=== PATIENT | female | born 1990 | race Caucasian/White ===

== ENCOUNTER 2016-05-19 18:37 | Outpatient (CLI) | payer OTHER ==
[2016-05-19 19:31] LABS: ABSOLUTE EOSINOPHILS # (AUTO) 0.1 10^3/uL (0.0-0.6); ABSOLUTE LYMPHOCYTES (AUTO) 0.9 10^3/uL (0.5-4.7); ABSOLUTE MONOCYTES (AUTO) 0.5 10^3/uL (0.1-1.4); ABSOLUTE NEUT (AUTO) 5.5 10^3/uL (1.7-8.2); BASOPHILS % (AUTO) 0.1 % (0-2); EOSINOPHILS % (AUTO) 1.1 % (0-6); HEMATOCRIT 32.7 % (36.0-47.0); HEMOGLOBIN 11.1 g/dL (12.0-15.5); HGB HCT DIFFERENCE 0.6; LYMPHOCYTES % (AUTO) 12.5 % (13-45); MEAN CORPUSCULAR HEMOGLOBIN 30.5 pg (27.0-33.4); MEAN CORPUSCULAR HGB CONC 34.1 g/dL (32.0-36.0); MEAN CORPUSCULAR VOLUME 89 fl (80-97); RED BLOOD COUNT 3.65 10^6/uL (3.72-5.28); RED CELL DISTRIBUTION WIDTH 13.4 % (11.5-14.0); SEGMENTED NEUTROPHILS % (AUTO) 79.3 % (42-78); WHITE BLOOD COUNT 6.9 10^3/uL (4.0-10.5)
[2016-05-19 19:51] LABS: AMORPHOUS SEDIMENT,URINE TRACE /HPF; APPEARANCE,URINE SLIGHTLY-CLOUDY; BILIRUBIN,URINE NEGATIVE (NEGATIVE); GLUCOSE, URINE NEGATIVE (NEGATIVE); KETONES,URINE NEGATIVE (NEGATIVE); LEUKOCYTE ESTERASE,URINE NEGATIVE (NEGATIVE); NITRITE,URINE NEGATIVE (NEGATIVE); PROTEIN,URINE NEGATIVE (NEGATIVE); URINE SPECIFIC GRAVITY 1.012; UROBILINOGEN,URINE NEGATIVE mg/dL (<2.0)
--- NOTE | 2016-05-19 20:00 | L&D Flow Sheet ---
LD Flowsheet Datetime Report Generated by CPN: 05/19/2016 20:00 Datetime: 05/19/2016 19:47 Vital Signs NBP Sys/Gifty/Mean (mmHg): 98 (QS system process) : 53 (QS system process) : 71 (QS system process) Pulse: 105 (QS system process) Datetime: 05/19/2016 19:45 Uterine Activity Monitor Mode: External (Tiffanie Marlatt, RN) Frequency (min): 0 (Tiffanie Marlatt, RN) Resting Tone (Palpate): Relaxed (Tiffanie Marlatt, RN) Assessment A Monitor Mode: External US (Tiffanie Marlatt, RN) FHR Baseline Rate : 140 (Tiffanie Marlatt, RN) Variability: Moderate 6-25 bpm (Tiffanie Marlatt, RN) Comments: appropriate for gestational age (Tiffanie Marlatt, RN) Datetime: 05/19/2016 19:31 Vital Signs NBP Sys/Gifty/Mean (mmHg): 93 (QS system process) : 50 (QS system process) : 66 (QS system process) Pulse: 107 (QS system process) Datetime: 05/19/2016 19:25 Communication Comments: Report received from S. Camp RN (Tiffanie Marlatt, RN) Datetime: 05/19/2016 19:24 Communication Communication: RN at Bedside; Report Given to @ K marlatt RN (Felicitas Camp, RNC) Communication Comments: care relinquished (Felicitas Camp, RNC) Datetime: 05/19/2016 19:16 Vital Signs NBP Sys/Gifty/Mean (mmHg): 99 (QS system process) : 57 (QS system process) : 72 (QS system process) Pulse: 103 (QS system process) Datetime: 05/19/2016 19:15 Assessment A Monitor Mode: External US; Auscultation (Felicitas Camp, RNC) FHR Baseline Rate : 140 (Felicitas Camp, RNC) FHR Baseline Changes: No Baseline Change (Felicitas Camp, RNC) Variability: Moderate 6-25 bpm (Felicitas Camp, RNC) Accelerations: 10X10 (Felicitas Camp, RNC) Decelerations: None (Felicitas Camp, RNC) Datetime: 05/19/2016 19:10 Patient Care IV/Blood Work: Labs Drawn (Felicitas Camp, RNC) Patient Care Comments: preeclampsia labs drawn (Felicitas Camp, RNC) Datetime: 05/19/2016 19:03 Frequency (min): denies (Felicitas Camp, RNC) Vaginal Exam Vaginal Bleeding: None (Felicitas Camp, RNC) Maternal Assessment Level of Consciousness: Fully Conscious (Felicitas Camp, RNC) DTR's/Clonus: DTRs 2+; No Clonus (Felicitas Camp, RNC) Headache: Denies (Felicitas Camp, RNC) Breath Sounds, Left: Clear and Equal (Felicitas Camp, RNC) Breath Sounds, Right: Clear and Equal (Felicitas Camp, RNC) Nausea/Vomiting: Denies (Felicitas Camp, RNC) RUQ Epigastric Pain: Denies (Felicitas Camp, RNC) Datetime: 05/19/2016:01 Vital Signs NBP Sys/Gifty/Mean (mmHg): 112 (QS system process) : 58 (QS system process) : 78 (QS system process) Pulse: 118 (QS system process) Datetime: 05/19/2016 19:00 Teaching Instructional Method: Demo; Verbal (Felicitas Camp, RNC) Plan of Care: Plan of Care Discussed; Gestational Hypertension/Preeclampsia/Eclampsia (Felicitas Camp, RNC) Unit Routine: [place] to Room; Call Scanlon; Bed (Felicitas Camp, RNC) Related: Hydration (Felicitas Camp, RNC) Datetime: 05/19/2016 18:59 Patient Position/Activity: Right Lateral (Felicitas Jamison [facility])
[2016-05-19 20:02] LABS: ALANINE AMINOTRANSFERASE 30 U/L (9-52); ALBUMIN 3.1 g/dL (3.5-5.0); ALKALINE PHOSPHATASE 128 U/L (38-126); ANION GAP 10 (5-19); ASPARTATE AMINO TRANSFERASE 23 U/L (14-36); BILIRUBIN,TOTAL 0.3 mg/dL (0.2-1.3); BLOOD UREA NITROGEN 7 mg/dL (7-20); CALCIUM 9.2 mg/dL (8.4-10.2); CARBON DIOXIDE 24 mmol/L (22-30); CHLORIDE 105 mmol/L (98-107); CREATININE RESULT 0.66 mg/dL (0.52-1.25); GLUCOSE 97 mg/dL (75-110); LDH 340 U/L (313-618); POTASSIUM 3.6 mmol/L (3.6-5.0); SODIUM 138.5 mmol/L (137-145); TOTAL PROTEIN 5.6 g/dL (6.3-8.2); URIC ACID 4.2 mg/dL (2.5-6.2)
[2016-05-19 20:09] LABS: URINE BARBITURATES SCREEN NEGATIVE; URINE METHADONE SCREEN NEGATIVE; URINE OPIATES LOW NEGATIVE; URINE PHENCYCLIDINE SCREEN NEGATIVE
== END 2016-05-19 20:15 | disposition home or self-care (01) ==
LOC: LC 18:37
PROVIDERS: ATTEND Specialist
PROC: 4A1HXCZ Monitoring of Products of Conception, Cardiac Rate, External Approach (ICD-10-PCS; principal; 2016-05-19)
DX: O47.03 False labor before 37 completed weeks of gestation, third trimester (principal); O16.3 Unspecified maternal hypertension, third trimester; Z3A.31 31 weeks gestation of pregnancy
CPT/HCPCS: 36415; 80053; 80307; 81001; 83615; 84550; 85025

== ENCOUNTER 2016-06-25 19:28 | Outpatient (CLI) | payer OTHER ==
--- NOTE | 2016-06-25 20:01 | L&D Flow Sheet ---
LD Flowsheet Datetime Report Generated by CPN: 06/25/2016 20:00 Datetime: 06/25/2016 19:52 Vital Signs NBP Sys/Gifty/Mean (mmHg): 123 (QS system process) : 78 (QS system process) : 94 (QS system process) Pulse: 126 (QS system process) Communication LaborFlag: Antepartum (QS system process) Datetime: 06/25/2016 19:50 Uterine Activity Frequency (min): q 5 min (Katalina Vitrano, RN) Pain Pain Scale: 3 (Katalina Vitrano, RN) Pain Presence: Intermittent (Katalina Vitrano, RN) Pain Type: Contraction (Katalina Vitrano, RN) Pain Location: Abdomen; Back (Katalina Vitrano, RN) Pain Relief Measures: Comfort Measures (Katalina Vitrano, RN) Pain Coping: Talking Through Contractions (Katalina Vitrano, RN) Membrane Status: Intact (Katalina Vitrano, RN) Vaginal Bleeding: None (Katalina Vitrano, RN) Maternal Assessment Level of Consciousness: Fully Conscious (Katalina Vitrano, RN) DTR's/Clonus: DTRs 2+; No Clonus (Katalina Vitrano, RN) Headache: Denies (Katalina Vitrano, RN) Breath Sounds, Left: Clear and Equal (Katalina Vitrano, RN) Breath Sounds, Right: Clear and Equal (Katalina Vitrano, RN) Nausea/Vomiting: Denies (Katalina Vitrano, RN) RUQ Epigastric Pain: Denies (Katalina Vitrano, RN) Communication LaborFlag: Antepartum (QS system process) Datetime: 06/25/2016 19:49 Vaginal Exam Dilatation (cm): 1.0 (Katalina Santana, RN) Effacement (%): 50 (Katalina Santana, RN) Station: -3 (Katalina Santana, RN) Exam by: Ledy Dillon RN (Katalina Vitrbruna, RN) Vaginal Bleeding: None (Katalina Santana, RN) Cervix, Consistency: Firm (Katalina Santana, RN) Cervix, Position: Midposition (Katalina Santana, RN) Datetime: 06/25/2016 19:45 Patient Care Patient Position/Activity: Right Tilt; Semi-Fowlers (Katalina Dillon RN) I/O Interventions: Clear Liquids Given (Katalina Dillon RN) Teaching Instructional Method: Verbal; Patient Instructed; Family/Support Person Instructed; Verbalized Understanding (Katalina Dillon RN) Plan of Care: Plan of Care Discussed (Katalina Dillon RN) Unit Routine: [place] to Room; Call Scanlon; Bed; Unit Personnel; Monitoring; Safety/Fall Risk Prevention; Bathroom Privileges (Katalina Dillon RN)
--- NOTE | 2016-06-25 20:01 | L&D Flow Sheet ---
LD Flowsheet Datetime Report Generated by CPN: 06/25/2016 20:00 Datetime: 06/25/2016 19:52 Vital Signs NBP Sys/Gifty/Mean (mmHg): 123 (QS system process) : 78 (QS system process) : 94 (QS system process) Pulse: 126 (QS system process) Communication LaborFlag: Antepartum (QS system process) Datetime: 06/25/2016 19:50 Uterine Activity Frequency (min): q 5 min (Katalina Vitrano, RN) Pain Pain Scale: 3 (Katalina Vitrano, RN) Pain Presence: Intermittent (Katalina Vitrano, RN) Pain Type: Contraction (Katalina Vitrano, RN) Pain Location: Abdomen; Back (Katalina Vitrano, RN) Pain Relief Measures: Comfort Measures (Katalina Vitrano, RN) Pain Coping: Talking Through Contractions (Katalina Vitrano, RN) Membrane Status: Intact (Katalina Vitrano, RN) Vaginal Bleeding: None (Katalina Vitrano, RN) Maternal Assessment Level of Consciousness: Fully Conscious (Katalina Vitrano, RN) DTR's/Clonus: DTRs 2+; No Clonus (Katalina Vitrano, RN) Headache: Denies (Katalina Vitrano, RN) Breath Sounds, Left: Clear and Equal (Katalina Vitrano, RN) Breath Sounds, Right: Clear and Equal (Katalina Vitrano, RN) Nausea/Vomiting: Denies (Katalina Vitrano, RN) RUQ Epigastric Pain: Denies (Katalina Vitrano, RN) Communication LaborFlag: Antepartum (QS system process) Datetime: 06/25/2016 19:49 Vaginal Exam Dilatation (cm): 1.0 (Katalina Santana, RN) Effacement (%): 50 (Katalina Santana, RN) Station: -3 (Katalina Santana, RN) Exam by: Ledy Dillon RN (Katalina Vitrbruna, RN) Vaginal Bleeding: None (Katalina Santana, RN) Cervix, Consistency: Firm (Katalina Santana, RN) Cervix, Position: Midposition (Katalina Santana, RN) Datetime: 06/25/2016 19:45 Patient Care Patient Position/Activity: Right Tilt; Semi-Fowlers (Katalina Vitrano, RN) I/O Interventions: Clear Liquids Given (Katalina Vitrano, RN) Teaching Instructional Method: Verbal; Patient Instructed; Family/Support Person Instructed; Verbalized Understanding (Katalina RUSSELL Dillon) Plan of Care: Plan of Care Discussed (Katalina RUSSELL Dillon) Unit Routine: [place] to Room; Call Scanlon; Bed; Unit Personnel; Monitoring; Safety/Fall Risk Prevention; Bathroom Privileges (Katalina RUSSELL Dillon) Datetime: 05/19/2016 20:01 Communication LaborFlag: Antepartum (QS system process) Datetime: 05/19/2016 19:47 Communication LaborFlag: Antepartum (QS system process) Datetime: 05/19/2016 19:31 Communication LaborFlag: Antepartum (QS system process) Datetime: 05/19/2016 19:16 Communication LaborFlag: Antepartum (QS system process) Datetime: 05/19/2016 19:01 Communication LaborFlag: Antepartum (QS system process)
[2016-06-25 20:06] LABS: APPEARANCE,URINE TURBID; BILIRUBIN,URINE NEGATIVE (NEGATIVE); GLUCOSE, URINE NEGATIVE (NEGATIVE); KETONES,URINE NEGATIVE (NEGATIVE); LEUKOCYTE ESTERASE,URINE NEGATIVE (NEGATIVE); NITRITE,URINE NEGATIVE (NEGATIVE); PROTEIN,URINE 30 mg/dL (NEGATIVE); URINE SPECIFIC GRAVITY 1.017; UROBILINOGEN,URINE NEGATIVE mg/dL (<2.0)
[2016-06-25 20:21] LABS: URINE BARBITURATES SCREEN NEGATIVE; URINE METHADONE SCREEN NEGATIVE; URINE OPIATES LOW NEGATIVE; URINE PHENCYCLIDINE SCREEN NEGATIVE
[2016-06-25 21:46] LABS: APPEARANCE,URINE CLEAR; BILIRUBIN,URINE NEGATIVE (NEGATIVE); GLUCOSE, URINE NEGATIVE (NEGATIVE); KETONES,URINE TRACE mg/dL (NEGATIVE); LEUKOCYTE ESTERASE,URINE NEGATIVE (NEGATIVE); NITRITE,URINE NEGATIVE (NEGATIVE); PROTEIN,URINE NEGATIVE (NEGATIVE); URINE SPECIFIC GRAVITY 1.009; UROBILINOGEN,URINE NEGATIVE mg/dL (<2.0)
== END 2016-06-25 22:14 | disposition home or self-care (01) ==
LOC: LC 19:28
PROVIDERS: ATTEND Obstetrics & Gynecology
PROC: 4A1HXCZ Monitoring of Products of Conception, Cardiac Rate, External Approach (ICD-10-PCS; principal; 2016-06-25)
DX: O47.03 False labor before 37 completed weeks of gestation, third trimester (principal); Z3A.36 36 weeks gestation of pregnancy
CPT/HCPCS: 80307; 81001; 81005

== ENCOUNTER → 2016-07-08 | Outpatient (CLI) | payer OTHER ==
--- NOTE | 2016-07-08 12:47 | Non Stress Test Report ---
Non Stress Test Datetime Report Generated by CPN: 07/08/2016 12:47 DEMOGRAPHIC Test Number: 2 EGA NST: 36.4 EGA NST: 31.2 INDICATION Indication for Study: Ordered by Provider Indication for Study: Other MONITORING Monitor Explained: Monitor Explained; Test Explained; Patient Verbalized Understanding Time on Monitor: 06/25/2016 19:46 Time on Monitor: 05/19/2016 18:57 Time off Monitor: 06/25/2016 22:05 NST Duration: 139 NST INTERVENTIONS NST Interventions: PO Hydration NST Interventions: PO Hydration; Reposition Patient Physician Notified NST: Dr. Corrales BABY A: [id number] BABY A Movement : Present Contraction Frequency : Irregular FHR Baseline : 135 Accelerations : 15X15 Decelerations : None Variability : Moderate 6-25bpm NST Review: Meets Criteria for Reactive NST NST Review and Verified By : Laurel Montague RN NST Results: Reactive NST REPORT Report Trigger: Send Report
== END ==
LOC: LC 12:37
PROVIDERS: ATTEND Obstetrics & Gynecology
PROC: 4A1HXCZ Monitoring of Products of Conception, Cardiac Rate, External Approach (ICD-10-PCS; principal; 2016-07-08)
DX: O47.03 False labor before 37 completed weeks of gestation, third trimester (principal); Z3A.36 36 weeks gestation of pregnancy
CPT/HCPCS: 59025

== ENCOUNTER 2016-07-10 16:49 | Outpatient (CLI) | payer OTHER ==
[2016-07-10 17:26] LABS: APPEARANCE,URINE SLIGHTLY-CLOUDY; BILIRUBIN,URINE NEGATIVE (NEGATIVE); GLUCOSE, URINE NEGATIVE (NEGATIVE); KETONES,URINE NEGATIVE (NEGATIVE); LEUKOCYTE ESTERASE,URINE MODERATE (NEGATIVE); NITRITE,URINE NEGATIVE (NEGATIVE); PROTEIN,URINE NEGATIVE (NEGATIVE); URINE SPECIFIC GRAVITY 1.008; UROBILINOGEN,URINE NEGATIVE mg/dL (<2.0)
[2016-07-10] MEDS ORDERED: NALBUPHINE HCL INJ 10 MG/1 ML AMPULE ONE (17:33)
[2016-07-10 17:54] LABS: URINE BARBITURATES SCREEN NEGATIVE; URINE METHADONE SCREEN NEGATIVE; URINE OPIATES LOW NEGATIVE; URINE PHENCYCLIDINE SCREEN NEGATIVE
--- NOTE | 2016-07-10 20:00 | L&D Flow Sheet ---
LD Flowsheet Datetime Report Generated by CPN: 07/10/2016 20:00 Datetime: 07/10/2016 19:20 Communication Comments: report given to Kathy Mena RN. Care relinquished (Oly Montenegro RN) Datetime: 07/10/2016 19:10 Communication Comments: Care assummed from RN Lan. Report received. Patient currently ambulating but aware of change of shift and new RN. Patient to arrive back in room at 2000 for evaluation (Viola Kossmann, RN) Datetime: 07/10/2016 18:58 Communication Comments: monitors removed for patient ambulation (Oly Montenegro, RN) Datetime: 07/10/2016 18:54 Communication Comments: Dr. Gleason notified of SVE, contractions, heart rate, order received for patient to ambulate for one hour (Oly Montenegro, RN) Datetime: 07/10/2016 18:52 NBP Sys/Gifty/Mean (mmHg): 134 (QS system process) : 91 (QS system process) : 106 (QS system process) Pulse: 117 (QS system process) LaborFlag: Antepartum (QS system process) Datetime: 07/10/2016 18:45 Patient Position/Activity: Peanut Ball; Right Extreme (Oly Montenegro RN) Datetime: 07/10/2016 18:30 Monitor Mode: External; Palpation (Oly Montenegro RN) Frequency (min): 2 (Oly Montenegro RN) Quality: Mild/Moderate (Oly Montenegro RN) Duration (sec): 60-80 (Oly Montenegro RN) Duration Criteria: Less than Two 120 Second Contractions (Oly Montenegro RN) Pattern: Normal: <= 5 Contractions in 10 Minutes (Oly Montenegro RN) Resting Tone (Palpate): Relaxed (Oly Montenegro RN) Monitor Mode: External US (Oly Montenegro RN) FHR Baseline Rate : 140 (Oly Montenegro RN) FHR Baseline Changes: No Baseline Change (Oly Montenegro RN) Variability: Moderate 6-25 bpm (Oly Montenegro RN) Accelerations: None (Oly Montenegro RN) Decelerations: None (Oly Montenegro RN) Dilatation (cm): 3.0 (Oly Montenegro RN) Effacement (%): 70 (Oly Montenegro RN) Station: -2 (Oly Montenegro RN) Exam by: Alisha Montenegro RN (Oly Montenegro RN) Datetime: 07/10/2016 18:23 NBP Sys/Gifty/Mean (mmHg): 134 (QS system process) : 76 (QS system process) : 100 (QS system process) Pulse: 117 (QS system process) LaborFlag: Antepartum (QS system process) Datetime: 07/10/2016 18:20 Communication Comments: patient states the edge is taken off of the pain but still rates pain 4/5 (Oly Montenegro RN) Datetime: 07/10/2016 18:07 NBP Sys/Gifty/Mean (mmHg): 125 (QS system process) : 58 (QS system process) : 84 (QS system process) Pulse: 114 (QS system process) LaborFlag: Antepartum (QS system process) Datetime: 07/10/2016 18:00 Monitor Mode: External; Palpation (Oly Montenegro RN) Frequency (min): 2 (Oly Montenegro, RUSSELL) Quality: Mild/Moderate (Oly Montenegro RN) Duration (sec): 50-60 (Oly Montenegro RN) Duration Criteria: Less than Two 120 Second Contractions (Oly Montenegro, RUSSELL) Pattern: Normal: <= 5 Contractions in 10 Minutes (Oly Montenegro RN) Resting Tone (Palpate): Relaxed (Oly Montenegro, RUSSELL) Contraction Comments: irritability (Oly Montenegro, RUSSELL) Monitor Mode: External US (Oly Montenegro, RUSSELL) FHR Baseline Rate : 145 (Oly Montenegro RN) FHR Baseline Changes: No Baseline Change (Oly Montenegro, RUSSELL) Variability: Moderate 6-25 bpm (Oly Montenegro, RUSSELL) Accelerations: None (Oly Montenegro, RUSSELL) Decelerations: None (Oly Montenegro, RUSSELL) Datetime: 07/10/2016 17:52 NBP Sys/Gifty/Mean (mmHg): 134 (QS system process) : 81 (QS system process) : 100 (QS system process) Pulse: 109 (QS system process) LaborFlag: Antepartum (QS system process) Datetime: 07/10/2016 17:40 Analgesics/Sedatives: Nubain (mg) @ 10 ([facility], RN) Datetime: 07/10/2016 17:38 NBP Sys/Gifty/Mean (mmHg): 134 (QS system process) : 88 (QS system process) : 104 (QS system process) Pulse: 116 (QS system process) LaborFlag: Antepartum (QS system process) Datetime: 07/10/2016 17:30 Monitor Mode: External; Palpation (Oly Montenegro, RUSSELL) Frequency (min): 1.5-2 (Oly Montenegro, RUSSELL) Quality: Mild/Moderate (Oly Montenegro, RN) Duration (sec): 60-90 (Oly Montenegro, RN) Duration Criteria: Less than Two 120 Second Contractions (Oly Montenegro, RN) Pattern: Normal: <= 5 Contractions in 10 Minutes (Oly Montenegro, RN) Resting Tone (Palpate): Relaxed (Oly Montenegro, RN) Monitor Mode: External US (Oly Montenegro, RN) FHR Baseline Rate : 140 (Oly Montenegro, RN) FHR Baseline Changes: No Baseline Change (Oly Montenegro, RN) Variability: Moderate 6-25 bpm (Oly Montenegro, RN) Accelerations: 15X15 (Oly Montenegro, RN) Decelerations: None (Oly Montenegro, RN) Datetime: 07/10/2016 17:22 Communication Comments: Dr. Gleason notified of patient's pain 4/5 with contractions in back. Orde received from Dr. Gleason to start IV and administer Nubain 10 mg IV x1 now (Oly Montenegro RN) Datetime: 07/10/2016 17:15 Dilatation (cm): 2.5 (Oly Montenegro RN) Effacement (%): 70 (Oly Montenegro RN) Station: -2 (Oly Montenegro RN) Exam by: Alisha Montenegro RN (Oly Montenegro RN) Vaginal Bleeding: None (Oly Montenegro RN) Cervix, Consistency: Moderate (Oly Montenegro RN) Cervix, Position: Posterior (Oly Montenegro RN) Datetime: 07/10/2016 17:09 NBP Sys/Gifty/Mean (mmHg): 145 (QS system process) : 69 (QS system process) : 99 (QS system process) Pulse: 116 (QS system process) LaborFlag: Antepartum (QS system process) Datetime: 07/10/2016 17:07 NBP Sys/Gifty/Mean (mmHg): 131 (QS system process) : 100 (QS system process) : 112 (QS system process) Pulse: 116 (QS system process) Communication Comments: patient movement, inaccurate reading (Oly Montenegro RN) LaborFlag: Antepartum (QS system process) Datetime: 07/10/2016 17:04 Frequency (min): 3-5 (Oly Montenegro RN) Quality: Moderate (Oly Montenegro RN) Pattern: Normal: <= 5 Contractions in 10 Minutes (Oly Montenegro RN) Resting Tone (Palpate): Relaxed (Oly Montenegro RN) Monitor Mode: External US (Oly Montenegro RN) Pain Scale: 4 (Oly Montenegro RN) Pain Presence: Intermittent (Oly Montenegro RN) Pain Type: Contraction (Oly Montenegro RN) Pain Location: Abdomen (Oly Montenegro RN) Pain Goal: 1 (Oly Montenegro RN) Pain Relief Measures: Comfort Measures (Oly Montenegro RN) Pain Coping: Breathing Through Contractions (Oly Montenegro RN) Membrane Status: Intact (Annotations: intact per patient) (Oly Montenegro RN) Vaginal Bleeding: None (Oly Montenegro RN) Dilatation (cm): 1-2 cm (Oly Montenegro RN) Effacement: 40-50_ effaced (Oly Montenegro RN) Station: minus 2 (Oly Montenegro RN) Consistency: Medium (Oly Montenegro RN) Position: Posterior (Oly Montenegro RN) Total Jenkins's Score: 4 (QS system process) : 0-4 = Unfavorable cervix (QS system process) Level of Consciousness: Fully Conscious (Oly Montenegro RN) DTR's/Clonus: DTRs 2+; No Clonus (Oly Montenegro RN) Headache: Denies (Oly Montenegro RN) Breath Sounds, Left: Clear and Equal (Oly Montenegro RN) Breath Sounds, Right: Clear and Equal (Oly Montenegro RN) Nausea/Vomiting: Denies (Oly Montenegro RN) RUQ Epigastric Pain: Denies (Oly Montenegro RN) Oxygen Method: Room Air (Oly Montenegro RN) Patient Position/Activity: Right Tilt (Oly Montenegro RN) Comfort Measures: Coaching (Oly Montenegro RN) Instructional Method: Verbal (Oly Montenegro RN) Plan of Care: Plan of Care Discussed (Oly Montenegro RN) Unit Routine: [place] to Room (Oly Montenegro RN) Labor/Induction: Labor Stages (Oly Montenegro RN) Related: Common Discomforts of (Oly Montenegro RN) LaborFlag: Antepartum (QS system process)
[2016-07-10] MEDS ORDERED: HYDROXYZINE PAMOATE 50 MG CAPSULE PO ONE (20:30)
[2016-07-10] MEDS ORDERED: HYDROXYZINE PAMOATE 50 MG CAPSULE ONE (20:47)
--- NOTE | 2016-07-10 21:31 | Non Stress Test Report ---
Non Stress Test Datetime Report Generated by CPN: 07/10/2016 21:31 DEMOGRAPHIC EGA NST: 38.5 INDICATION Indication for Study: Ordered by Provider Indication for Study (NST) Other: LC VITAL SIGNS Temperature - NST: 98.0 Pulse - NST: 120 RESP - NST: 20 NBPSYS NST: 126 NBPDIA NST: 83 URINE RESULTS Urine Protein, NST: Negative Urine Ketones - NST: Negative Urine Glucose - NST: Negative Urine Blood - NST: Positive MONITORING Monitor Explained: Monitor Explained; Test Explained; Patient Verbalized Understanding Time on Monitor: 07/10/2016 16:58 Time off Monitor: 07/10/2016 20:37 NST Duration: 219 NST INTERVENTIONS NST Interventions: PO Hydration; IV Fluids BABY A: [id number] BABY A Movement : Present Contraction Frequency : 2-4 with uterine irritability FHR Baseline : 135 Accelerations : 15X15 Decelerations : Variable Variability : Moderate 6-25bpm NST Review: Meets Criteria for Reactive NST NST Review and Verified By : Chalman, A. RN NST Results: Reactive NST COMMENTS NST Comments: patient received nubain so tracing reflects medication administration NST REPORT Report Trigger: Send Report
== END 2016-07-10 21:10 | disposition home or self-care (01) ==
LOC: LC 16:49
PROVIDERS: ATTEND Obstetrics & Gynecology
PROC: 4A1HXCZ Monitoring of Products of Conception, Cardiac Rate, External Approach (ICD-10-PCS; principal; 2016-07-10)
DX: O47.1 False labor at or after 37 completed weeks of gestation (principal); Z3A.38 38 weeks gestation of pregnancy
CPT/HCPCS: 59025; 81005; 80307; J2300

== ENCOUNTER 2016-07-15 14:33 | Inpatient (IN) | payer OTHER ==
[2016-07-15 15:10] LABS: AMNISURE (ROM) POSITIVE (NEGATIVE)
[2016-07-15 15:13] LABS: APPEARANCE,URINE SLIGHTLY-CLOUDY; BILIRUBIN,URINE NEGATIVE (NEGATIVE); GLUCOSE, URINE NEGATIVE (NEGATIVE); KETONES,URINE NEGATIVE (NEGATIVE); LEUKOCYTE ESTERASE,URINE MODERATE (NEGATIVE); NITRITE,URINE NEGATIVE (NEGATIVE); PROTEIN,URINE NEGATIVE (NEGATIVE); URINE SPECIFIC GRAVITY 1.014; UROBILINOGEN,URINE NEGATIVE mg/dL (<2.0)
[2016-07-15 15:30] LABS: URINE BARBITURATES SCREEN NEGATIVE; URINE METHADONE SCREEN NEGATIVE; URINE OPIATES LOW NEGATIVE; URINE PHENCYCLIDINE SCREEN NEGATIVE
[2016-07-15] MEDS ORDERED: RINGERS SOLUTION,LACTATED 1,000 ML IV PRN (15:32)
[2016-07-15] MEDS ORDERED: RINGERS SOLUTION,LACTATED 1,000 ML IV ONE (15:32)
[2016-07-15] MEDS ORDERED: OXYTOCIN/NORMAL SALINE 1,000 ML IV PRN ×2 (15:34→20:03)
[2016-07-15] MEDS ORDERED: BENZOIN/ALOE VERA/STORAX/TOLU TINCTURE 60 ML TP PRN (15:35)
[2016-07-15] MEDS ORDERED: BUPIVACAINE HCL 0.25 % INJ/PF (2.5 MG/1 ML) 30 ML VIAL INFIL ONE (15:35)
[2016-07-15] MEDS ORDERED: MISOPROSTOL 0.2 MG TABLET ONE (15:38)
[2016-07-15] MEDS ORDERED: OXYTOCIN/NORMAL SALINE 20 UNIT/1,000 ML RTUINJ ONE (15:39)
[2016-07-15] MEDS ORDERED: LIDOCAINE 1% INJ-PF (10 MG/ML) 30 ML SDV ONE (15:39)
[2016-07-15 15:58] LABS: ABSOLUTE LYMPHOCYTES (AUTO) 0.7 10^3/uL (0.5-4.7); ABSOLUTE MONOCYTES (AUTO) 0.4 10^3/uL (0.1-1.4); ABSOLUTE NEUT (AUTO) 7.9 10^3/uL (1.7-8.2); BASOPHILS % (AUTO) 0.2 % (0-2); EOSINOPHILS % (AUTO) 0.5 % (0-6); HEMATOCRIT 34.8 % (36.0-47.0); HEMOGLOBIN 11.8 g/dL (12.0-15.5); HGB HCT DIFFERENCE 0.6; LYMPHOCYTES % (AUTO) 7.4 % (13-45); MEAN CORPUSCULAR HEMOGLOBIN 29.3 pg (27.0-33.4); MEAN CORPUSCULAR HGB CONC 33.9 g/dL (32.0-36.0); MEAN CORPUSCULAR VOLUME 87 fl (80-97); MONOCYTES % (AUTO) 4.4 % (3-13); RED BLOOD COUNT 4.03 10^6/uL (3.72-5.28); RED CELL DISTRIBUTION WIDTH 15.2 % (11.5-14.0); SEGMENTED NEUTROPHILS % (AUTO) 87.5 % (42-78)
[2016-07-15] MEDS ORDERED: PHENYLEPHRINE HCL INJ/PF 10 MG/1 ML SDV ONE (16:17)
[2016-07-15] MEDS ORDERED: EPHEDRINE SULFATE INJ 50 MG/1 ML AMPULE ONE (16:17)
[2016-07-15] MEDS ORDERED: BUPIVACAINE HCL/NS/PF 125 MG/100 ML RTUINJ EPI ONE (16:17)
[2016-07-15] MEDS ORDERED: BUPIVACAINE HCL 0.25 % INJ/PF (2.5 MG/1 ML) 30 ML VIAL ONE (16:17)
[2016-07-15 16:22] LABS: ALANINE AMINOTRANSFERASE 43 U/L (9-52); ALBUMIN 2.9 g/dL (3.5-5.0); ALKALINE PHOSPHATASE 303 U/L (38-126); ANION GAP 10 (5-19); ASPARTATE AMINO TRANSFERASE 34 U/L (14-36); BILIRUBIN,DIRECT 0.3 mg/dL (0.0-0.4); BILIRUBIN,TOTAL 0.6 mg/dL (0.2-1.3); BLOOD UREA NITROGEN 10 mg/dL (7-20); CALCIUM 9.1 mg/dL (8.4-10.2); CARBON DIOXIDE 22 mmol/L (22-30); CHLORIDE 106 mmol/L (98-107); CREATININE RESULT 0.85 mg/dL (0.52-1.25); GLUCOSE 87 mg/dL (75-110); LDH 374 U/L (313-618); POTASSIUM 3.9 mmol/L (3.6-5.0); SODIUM 138.3 mmol/L (137-145); TOTAL PROTEIN 5.5 g/dL (6.3-8.2)
[2016-07-15] MEDS ORDERED: FAMOTIDINE INJ/PF 20 MG/2 ML SDV IV ONE ×2 (16:22)
[2016-07-15] MEDS ORDERED: ACETAMINOPHEN WITH CODEINE #3 TABLET PO PRN ×2 (20:03)
[2016-07-15] MEDS ORDERED: DIPH/PERTUSS(ACELL)/TETANUS VAC/PF 0.5 ML SYR (>=10YO) IM PRN (20:03)
[2016-07-15] MEDS ORDERED: MEASLES,MUMPS&RUBELLA VACC/PF 0.5 ML VIAL SUBCUT PRN (20:03)
[2016-07-15] MEDS ORDERED: BENZOCAINE/MENTHOL AEROSOL SPRAY 56 ML TOP PRN (20:03)
[2016-07-15] MEDS ORDERED: DIBUCAINE 1% OINTMENT 28 GM TP PRN (20:03)
[2016-07-15] MEDS ORDERED: ZOLPIDEM TARTRATE 5 MG TABLET PO PRN (20:03)
[2016-07-15] MEDS ORDERED: ACETAMINOPHEN WITH CODEINE #3 TABLET ONE (21:24)
[2016-07-15] MEDS ORDERED: IBUPROFEN 800 MG TABLET ONE (21:24)
[2016-07-15] MEDS: IBUPROFEN 800 MG TABLET PO SCH (21:31)
--- NOTE | 2016-07-15 21:50 | Admission Physical ---
Datetime Report Generated by CPN: 07/15/2016 21:50 CURRENT ADMISSION Chief Complaint: Suspected Ruptured Membranes Indication for Induction: PROM Admit Plan: Initiate Labor Protocol; Initiate Labor Augmentation Protocol Admit Plan- Other: hx Hodgkins lymphoma and radiation 02/2015 ALLERGIES Medication Allergies: Yes Medication Allergies: morphine/DE/Hives (07/15/2016); fentanyl/Hives (07/15/2016); midazolam/Hives (07/15/2016) Medication Allergies: morphine/DE/Hives (07/10/2016); fentanyl/Hives (07/10/2016); midazolam/Hives (07/10/2016) Medication Allergies: morphine/DE/Hives (05/19/2016); fentanyl/Hives (06/25/2016); midazolam/Hives (06/25/2016) Medication Allergies: morphine/DE/Hives (05/19/2016); fentanyl (05/19/2016); midazolam (05/19/2016) Medication Allergies: morphine/DE/Hives (08/04/2014); fentanyl (02/07/2016); midazolam (02/07/2016) Medication Allergies: Morphine/DE/Hives (08/04/2014) Latex: No Latex Allergies Food Allergies: N/A Environmental Allergies: N/A OBSTETRICAL HISTORY EDC: 07/19/2016 00:00 : 2 Para: 1 Para: 1 Term: 1 : 0 SAB: 0 IAB: 0 Ectopic: 0 Livin Cesareans: 0 VBACs: 0 Multiple Births: 0 Gestational Diabetes: No Rh Sensitization: No Incompetent Cervix: No RIANA: No Infertility: No ART Treatment: No Uterine Anomaly: No IUGR: No Hx Previous C/S: No Macrosomia: No Hx Loss/Stillborn: No PIH: Yes Hx : No Placenta Previa/Abruption: No Depression/PP Depression: No PTL/PROM: No Post Hemorrhage: No Current Procedures: Ultrasound; NST Obstetrical History Comments: G1: 2013 baby girl, 39 weeks, 7 lb 0 oz G2: Current, chtn SEE RECORDS Alcohol: No Marijuana : No Cocaine: No Other Illicit Drugs: No Cigarettes: Never Smoker. [id number] MEDICAL HISTORY Diabetes: No Blood Transfusion: No Pulmonary Disease (Asthma, TB): No Breast Disease: No Hypertension: Yes English Faculty Member Surgery: No Heart Disease: No Hosp/Surgery: Yes Autoimmune Disorder: No Anesthetic Complications: No Kidney Disease: No Abnormal Pap Smear: No Neuro/Epilepsy: No Psychiatric Disorders: No Other Medical Diseases: Yes Hepatitis/Liver Disease: No Significant Family History: No Varicosities/Phlebitis: No Trauma/Violence : No Thyroid Dysfunction: No Medical History Comments: Surgery: Adenotonsillectomy 2007; Lateral Retinacular Release 2012 (surgical release of tissues in kneecap) R knee; Bilateral hip surgery for CHIQUIS 2010 Other: Hodgkins Lymphoma 2014, 1 year cancer free; Femoroacetabular Impingement Syndrome (CHIQUIS) bilaterally INFECTIOUS HISTORY Gonorrhea: No Genital Herpes: No Chlamydia: No Tuberculosis: No Syphilis: No Hepatitis: No HIV/AIDS Exposure: No Rash or Viral Illness: No HPV: No PHYSICAL EXAM General: Normal HEENT: Deferred Neurologic: Deferred Thyroid: Deferred Heart: Normal Lungs: Normal Breast: Deferred Back: Normal Abdomen: Normal Genitourinary Exam: Normal Extremities: Normal DTRs: Deferred Pelvic Type: Adequate Physical Exam Comments: Cervix per Dr. Neilsen, 4/80 Vital Signs: Reviewed MEMBRANES Membranes: Ruptured Amniotic Fluid Color: Clear FETUS A EGA: 39.3 Presentation: Vertex Admit Comment: GBS neg start pitocin augmentation PLANS FOR LABOR AND DELIVERY Labor and Delivery: None Pain Management: Epidural Feeding Preference: Breast Benefit of Breast Feed Discussed: Yes Circumcision: Yes INFORMED CONSENT Assignment: Charisse Barker MD Signature: with User ID: Sudhir : with User ID: [email or web address]
--- NOTE | 2016-07-16 00:33 | Delivery Summary ---
Del Sum A-C Datetime Report Generated by CPN: 07/16/2016 00:33 DELIVERY PERSONNEL DELIVERY PERSONNEL: [id number] Delivery Doctor:: Charisse Barker MD Labor and Delivery Nurse:: Sameera Montague RNpump operator Nurse:: Linwood Jung RN Nursery Nurse:: Katalina Stahl RN Camp Manager/JOE: Almita Guadalupe CNA Additional Personnel: : Sandra Stroud RN MATERNAL INFORMATION Delivery Anesthesia: Epidural Medications After Delivery: Pitocin Bolus-Please Comment; Pitocin Drip 20 Units/1000ml NSS Estimated Blood Loss (ml): 200 Maternal Complications: None Provider Comments: When pt complete and pushing at + 2 station, repetitve variables to 60s noted. Kiwi vac placed and pulled over 6 minutes with ctxs max pressure of 550 and 1 pop off. Vaccum released at + 4 station and pt allowed to push for a couple ctxs. Did not deliver with this so vacuum reapplied and pulled with ctx over 2 min more to delivery of head OP. Kiwi released and nuchal cord x 2 reduced. Shoulders and body delivered easily thereafter. NURSING EDUCATION SPECIALIST/op bulb suctioned. Male with apgars 8 and 9 placed on mother's abdomen. Cord clamped and cut. Placenta spont and intact. Perineal lac repaired. LABOR SUMMARY EDC: 07/19/2016 00:00 No. Babies in Womb: 1 Attempted: No Labor Anesthesia: Epidural LABOR INFORMATION Reason for Induction: Not Applicable Onset of Labor: 07/15/2016 12:20 Complete Dilatation: 07/15/2016 18:56 Oxytocin: Augmentation Group B Beta Strep: negative Antibiotics # of Doses: 0 Steroids Given: None Reason Steroids Not Administered: Not Applicable MEMBRANES Membranes Rupture Method: Spontaneous Rupture of Membranes: 07/15/2016 12:20 Length of Rupture (hr): 7.23 Amniotic Fluid Color: Clear Amniotic Fluid Amount: Moderate Amniotic Fluid Odor: Normal STAGES OF LABOR Stage 1 hr: 6 Stage 1 min: 36 Stage 2 hr: 0 Stage 2 min: 38 Stage 3 hr: 0 Stage 3 min: 14 Total Time in Labor hr: 7 Total Time in Labor min: 28 VAGINAL DELIVERY Episiotomy: None Laceration Extension: Second Degree Laceration Type: Perineal Laceration Repair: Yes Laceration Repair Note: with 2-0 chromic Sponge Count Correct: N/A Sharps Count Correct: Yes CSECTION DELIVERY Primary Indication: N/A Secondary Indication: N/A CSection Incidence: N/A Labor: N/A Elective: N/A CSection Incision: N/A BABY A INFORMATION Delivery Date/Time: 07/15/2016 19:34 Method of Delivery: Vaginal Born in Route : No : N/A Forceps: N/A Vacuum Extraction: Successful Shoulder Dystocia : No ASSISTED DELIVERY BABY A Indication for Assisted Delivery: FHR decelerations Catheter Prior to Procedure: No Station Vacuum/Forcep Apply: 2 Vacuum Number of Pulls: 8 Vacuum Number of PopOffs: 1 Vacuum Maximum Pressure Obtained: 550 Reduce Pressure btwn Ctx: Yes Vacuum Cabinet Worker: KIWI Total Time Vacuum Applied: 8 minutes PRESENTATION/POSITION BABY A Presentation: Cephalic Cephalic Presentation: Vertex Vertex Position: Left Occipital Anterior Breech Presentation: N/A PLACENTA INFORMATION BABY A Placenta Delivery Time : 07/15/2016 19:48 Placenta Method of Delivery: Spontaneous Placenta Status: Delivered SCORES BABY A Heart Rate 1 min: >100 bpm Resp Effort 1 min: Good Cry Reflex Irritability 1 min: Cough or Sneeze or Pulls Away Muscle Tone 1 min: Active Motion Color 1 min: Blue/Pale Resuscitation Effort 1 min: Tactile Stimulation SCORE 1 MIN: 8 Heart Rate 5 min: >100 bpm Resp Effort 5 min: Good Cry Reflex Irritability 5 min: Cough or Sneeze or Pulls Away Muscle Tone 5 min: Active Motion Color 5 min: Body [place], Extremities Blue Resuscitation Effort 5 min: Tactile Stimulation SCORE 5 MIN: 9 INFORMATION BABY A Gestational Age at Delivery: 39.3 Gestational Status: Full Term- 39- 40.6 Weeks Infant Outcome : Liveborn Infant Condition : Stable Sex: Male IDENTIFICATION BABY A Verification Date/Time: 07/15/2016 19:49 ID Band Number: [id number] Mother's Name Verified: Yes Infant RN Verifying Infant: Crescencio Stroud, RN _ O. Meredith, RN WEIGHT/LENGTH BABY A Infant Birthweight (gm): 3460 Weight (lb): 7 Weight (oz): 10 Infant Length (in): 21.50 Length (cm): 54.61 CORD INFORMATION BABY A No. Cord Vessels: 3 Nuchal Cord : Around Neck x2, Tight Cord Blood Taken: Yes-For Eval (Mom's Blood Type - or O+) Suction: Mouth; Nose ASSESSMENT BABY A Infant Complications: Multiple Variable Decels Physical Findings at Delivery: Caput Succedaneum; Molding of the Head Infant Respirations: Appears Normal Skin to Skin: Yes Skin to Skin Time (min): 30 Finish Repair Worker/ALS Called : No Care By: Ledy Stahl RN Transferred To: Remains with Mother BABY B INFORMATION : N/A SIGNATURES Signature: with User ID: [email or web address] : I was personally available for consultation and serving as supervising physician for the MLP.
--- NOTE | 2016-07-16 00:50 | L&D Discharge Summary ---
OB Discharge Summary Datetime Report Generated by CPN: 07/16/2016 00:49 DISCHARGE DIAGNOSIS Diagnosis/Symptoms: False Labor Treatment/Procedures Other: labs Gestation: 39.3 Number of Babies in Womb: 1 Parity: 1 DIET/ACTIVITY/RESTRICTIONS Diet: Regular Activity: Normal Activity TEACHING/INSTRUCTIONS/REFERRALS Instructions Given To: patient and family Instructions Understood: Patient Verbalized Understanding; Support Person Verbalized Understanding Referrals: None Educational Materials- Other: Kick Counts, Term DISCHARGE INFORMATION Discharged AMA: No Discharge Date/Time: 07/10/2016 21:10 Discharged To: Home Discharge Provider Name: Gleason Accompanied By: Support Person Discharge Method: Ambulatory Condition: Stable FOLLOW UP INFORMATION Follow Up With: [facility] Follow Up On: As Scheduled Follow Up Phone Number: [facility] - Comments: reviewed counterpressure, pain relief measures reviewed
[2016-07-16 07:55] LABS: HEMATOCRIT 28.2 % (36.0-47.0); MEAN CORPUSCULAR HEMOGLOBIN 29.1 pg (27.0-33.4); MEAN CORPUSCULAR HGB CONC 33.2 g/dL (32.0-36.0); MEAN CORPUSCULAR VOLUME 88 fl (80-97); RED BLOOD COUNT 3.22 10^6/uL (3.72-5.28); RED CELL DISTRIBUTION WIDTH 15.5 % (11.5-14.0); WHITE BLOOD COUNT 9.9 10^3/uL (4.0-10.5)
[2016-07-16 08:00] LABS: HEMOGLOBIN 9.4 g/dL (12.0-15.5)
[2016-07-16] MEDS ORDERED: IBUPROFEN 800 MG TABLET ONE (10:05)
[2016-07-16] MEDS: PRENATAL VITAMIN W-O CA NO5/FE FUMARATE/FA CAPSULE PO SCH (10:14)
[2016-07-16] MEDS: IBUPROFEN 800 MG TABLET PO SCH ×3 (10:15→22:48)
[2016-07-16] MEDS: FERROUS SULFATE 325 MG TABLET PO SCH ×2 (10:16→17:41)
[2016-07-16] MEDS: DOCUSATE SODIUM 100 MG CAPSULE PO SCH ×2 (10:16→17:41)
[2016-07-16] MEDS: SENNOSIDES/DOCUSATE 8.6-50 MG 1 EACH TABLET PO SCH (10:16)
--- NOTE | 2016-07-16 15:38 | PDOC PROGRESS REPORT ---
Subjective-OB Subjective: Post Delivery Day: 26 year old G2 now P2 s/p VAVD ppd 1.Ambulating, voiding and without difficulty. Reports large clots x several times this am that have improved since last time I checked on her this am ( plum size clot noted in toilet this AM during my visit, pt. was asymptomatic and continues to be). Denies dizziness, light headedness, SOB or other concerns. Denies any needs at this time Physical Exam (OB) Vital Signs: Temp Pulse Resp BP Pulse Ox 97.8 F 88 16 124/83 100 07/16/16 11:37 07/16/16 11:37 07/16/16 11:37 07/16/16 11:37 07/16/16 11:37 Intake & Output 07/15/16 07/16/16 07/17/16 06:59 06:59 06:59 Weight 75.8 kg - General General Appearance: Appears well In distress: None - PIH/Pre-Eclampsia Clonus: Negative Headache: Absent Epigastric Pain: No Visual Changes: No - Lochia Lochia Amount: Scant < 10 ml Lochia Color: Rubra/Red - Abdomen Hernia Present: No Fundal Description: Firm, Midline Fundal Height: u/u - u/2 - Respiratory Respiratory Status: No respiratory distress - Extremities Upper extremity: Normal inspection Lower extremities: Normal inspection - Psychological Associated symptoms: Normal affect, Normal mood - bonding well with baby and Objective-Diagnostic Laboratory: 07/16/16 07:24 07/15/16 15:45 07/15/16 07/15/16 07/15/16 15:45 15:45 15:45 WBC 9.0 RBC 4.03 Hgb 11.8 L Hct 34.8 L MCV 87 MCH 29.3 MCHC 33.9 RDW 15.2 H Plt Count 249 Seg Neutrophils % 87.5 H Lymphocytes % 7.4 L Monocytes % 4.4 Eosinophils % 0.5 Basophils % 0.2 Absolute Neutrophils 7.9 Absolute Lymphocytes 0.7 Absolute Monocytes 0.4 Absolute Eosinophils 0.0 Absolute Basophils 0.0 Sodium 138.3 Potassium 3.9 Chloride 106 Carbon Dioxide 22 Anion Gap 10 BUN 10 Creatinine 0.85 Est GFR ( Amer) > 60 Est GFR (Non-Af Amer) > 60 Glucose 87 Calcium 9.1 Total Bilirubin 0.6 AST 34 ALT 43 Alkaline Phosphatase 303 H Total Protein 5.5 L Albumin 2.9 L Blood Type O POSITIVE Antibody Screen NEGATIVE 07/16/16 07:24 WBC 9.9 RBC 3.22 L Hgb 9.4 L D Hct 28.2 L MCV 88 MCH 29.1 MCHC 33.2 RDW 15.5 H Plt Count 230 Seg Neutrophils % Lymphocytes % Monocytes % Eosinophils % Basophils % Absolute Neutrophils Absolute Lymphocytes Absolute Monocytes Absolute Eosinophils Absolute Basophils Sodium Potassium Chloride Carbon Dioxide Anion Gap BUN Creatinine Est GFR ( Amer) Est GFR (Non-Af Amer) Glucose Calcium Total Bilirubin AST ALT Alkaline Phosphatase Total Protein Albumin Blood Type Antibody Screen Assessment and Plan(PN) - Assessment and Plan (1) Chronic hypertension affecting Is this a current diagnosis for this admission?: YesPlan: continue stay (2) Anemia Qualifiers: Anemia type: unspecified type Qualified Code(s): D64.9 - Anemia, unspecified Is this a current diagnosis for this admission?: YesPlan: will repeat cbc today and continue iron supplementation (3) Vacuum extractor delivery, delivered Is this a current diagnosis for this admission?: YesPlan: continue stay - Time Spent with Patient Time with patient: Less than 15 minutes Medications reviewed and adjusted accordingly: Yes - Disposition Anticipated Discharge: Home Within: within 24 hours
[2016-07-16 15:58] LABS: ABSOLUTE EOSINOPHILS # (AUTO) 0.1 10^3/uL (0.0-0.6); ABSOLUTE MONOCYTES (AUTO) 0.4 10^3/uL (0.1-1.4); ABSOLUTE NEUT (AUTO) 7.6 10^3/uL (1.7-8.2); BASOPHILS % (AUTO) 0.3 % (0-2); EOSINOPHILS % (AUTO) 0.6 % (0-6); HEMATOCRIT 29.2 % (36.0-47.0); HEMOGLOBIN 9.9 g/dL (12.0-15.5); HGB HCT DIFFERENCE 0.5; MEAN CORPUSCULAR HEMOGLOBIN 29.4 pg (27.0-33.4); MEAN CORPUSCULAR HGB CONC 33.9 g/dL (32.0-36.0); MEAN CORPUSCULAR VOLUME 87 fl (80-97); MONOCYTES % (AUTO) 4.2 % (3-13); RED BLOOD COUNT 3.37 10^6/uL (3.72-5.28); RED CELL DISTRIBUTION WIDTH 15.4 % (11.5-14.0); SEGMENTED NEUTROPHILS % (AUTO) 83.9 % (42-78)
[2016-07-17] MEDS: IBUPROFEN 800 MG TABLET PO SCH (06:27)
[2016-07-17 08:04] VITALS: BP 124/69
--- NOTE | 2016-07-17 09:06 | PDOC PROGRESS REPORT ---
Subjective-OB Subjective: Post Delivery Day: 26 year old. Denies any needs at this time Doing well, no c/o, mother in room, scant lochia,, breast feeding, voiding Physical Exam (OB) Vital Signs: Temp Pulse Resp BP Pulse Ox 97.8 F 75 16 124/69 100 07/17/16 08:27 07/17/16 08:27 07/17/16 08:27 07/17/16 07:47 07/17/16 08:27 Intake & Output 07/16/16 07/17/16 07/18/16 06:59 06:59 06:59 Weight 75.8 kg - PIH/Pre-Eclampsia DTR's: 1 + Clonus: Negative Headache: Absent Epigastric Pain: No Visual Changes: No - Lochia Lochia Amount: Small 10-25 ml Lochia Color: Rubra/Red - Abdomen Description: Soft, Round Hernia Present: No Fundal Description: Firm, Midline Fundal Height: u/u - u/2 Objective-Diagnostic Laboratory: 07/16/16 15:44 07/15/16 15:45 07/16/16 15:44 WBC 9.0 RBC 3.37 L Hgb 9.9 L Hct 29.2 L MCV 87 MCH 29.4 MCHC 33.9 RDW 15.4 H Plt Count 239 Seg Neutrophils % 83.9 H Lymphocytes % 11.0 L Monocytes % 4.2 Eosinophils % 0.6 Basophils % 0.3 Absolute Neutrophils 7.6 Absolute Lymphocytes 1.0 Absolute Monocytes 0.4 Absolute Eosinophils 0.1 Absolute Basophils 0.0 Assessment and Plan(PN) - Assessment and Plan (1) Chronic hypertension affecting Is this a current diagnosis for this admission?: Yes (2) Anemia Qualifiers: Anemia type: unspecified type Qualified Code(s): D64.9 - Anemia, unspecified Is this a current diagnosis for this admission?: Yes (3) Vacuum extractor delivery, delivered Is this a current diagnosis for this admission?: Yes - Time Spent with Patient Time with patient: Less than 15 minutes Medications reviewed and adjusted accordingly: Yes - Disposition Anticipated Discharge: Home Within: Other - home today
--- NOTE | 2016-07-17 09:09 | PDOC DISCHARGE SUMMARY ---
Final Diagnosis Discharge Date: 07/17/16 - Final Diagnosis (1) Chronic hypertension affecting Is this a current diagnosis for this admission?: Yes (2) Anemia Is this a current diagnosis for this admission?: Yes (3) Vacuum extractor delivery, delivered Is this a current diagnosis for this admission?: Yes Discharge Data - Discharge Medication Home Medications: Pnv with Ca,No.71/Iron/FA [ Vitamin Tablet] 1 tab PO DAILY 08/31/13 Gestational Age: 39.3 Reason(s) for Admission: PROM Procedures: NST, Ultrasound Intrapartum Procedure(s): Vacuum Extraction Complication(s): Laceration-Perineal Laceration-Degree: 2nd - Data Baby 1 Male at 1 minute: 8 at 5 minutes: 9 Weight: 3.459 kg Home with Mother: Yes Complications: No - Diagnosis Test Laboratory: Temp Pulse Resp BP Pulse Ox 97.8 F 75 16 124/69 100 07/17/16 08:27 07/17/16 08:27 07/17/16 08:27 07/17/16 07:47 07/17/16 08:27 07/15/16 07/15/16 07/16/16 14:39 15:45 07:24 RBC 4.03 3.22 L Hgb 11.8 L 9.4 L D Hct 34.8 L 28.2 L Urine Opiates Screen NEGATIVE 07/16/16 15:44 RBC 3.37 L Hgb 9.9 L Hct 29.2 L Urine Opiates Screen - Discharge information/Instructions Discharge Activity: Activity As Tolerated, No Driving, No Lifting Over 10 Pounds , Pelvic Rest, No tub bath Discharge Diet: As Tolerated, Regular Disposition: HOME, SELF-CARE Follow up with: [facility] in: 4, Weeks
[2016-07-17] MEDS: PRENATAL VITAMIN W-O CA NO5/FE FUMARATE/FA CAPSULE PO SCH (09:38)
[2016-07-17] MEDS: SENNOSIDES/DOCUSATE 8.6-50 MG 1 EACH TABLET PO SCH (09:38)
[2016-07-17] MEDS: DOCUSATE SODIUM 100 MG CAPSULE PO SCH (09:38)
[2016-07-17] MEDS: FERROUS SULFATE 325 MG TABLET PO SCH (09:38)
== END 2016-07-17 12:56 | disposition home or self-care (01) | DRG 774 ==
LOC: LC 14:33 → LR 15:42 → 2S 21:45
PROVIDERS: ADMIT Specialist; ATTEND Specialist
PROC: 10D07Z6 Extraction of Products of Conception, Vacuum, Via Natural or Artificial Opening (ICD-10-PCS; principal; 2016-07-15)
PROC: 0HQ9XZZ Repair Perineum Skin, External Approach (ICD-10-PCS; 2016-07-15)
DX: O70.1 Second degree perineal laceration during delivery (principal); O10.92 Unspecified pre-existing hypertension complicating childbirth; Z37.0 Single live birth; Z3A.39 39 weeks gestation of pregnancy; O99.02 Anemia complicating childbirth; D64.9 Anemia, unspecified
CPT/HCPCS: 36415; 80053; 80307; 81005; 83615; 84112; 85025; 85027; 86592; 86850; 86900; 86901; 88307; 90707; 90715; J2370; J2590; J3490; S0028